=== PATIENT | male | born 1980 | race Caucasian/White ===

== ENCOUNTER 2019-06-18 09:15 | Observation (INO) | payer OTHER ==
[2019-06-18] MEDS ORDERED: PROPOFOL 20 ML (12:49)
[2019-06-18] MEDS ORDERED: SUCCINYLCHOLINE CHLORIDE 100 MG/5 ML SYG IV (12:49)
[2019-06-18] MEDS ORDERED: CEFAZOLIN 1 GM INJ ×2 (12:49)
[2019-06-18] MEDS ORDERED: LIDOCAINE 2% (SDV) 5 ML INJ (12:49)
[2019-06-18] MEDS ORDERED: ROCURONIUM 50 MG INJ ×2 (12:49→15:07)
[2019-06-18] MEDS ORDERED: NEOSTIGMINE 3 MG/3 ML SYRINGE ×2 (12:49→15:07)
[2019-06-18] MEDS ORDERED: MEPERIDINE 100 MG INJ (12:49)
[2019-06-18] MEDS ORDERED: GLYCOPYRROLATE 0.4 MG INJ ×3 (12:49→15:07)
[2019-06-18] MEDS: BUPIVACAINE 0.5%/EPI (SDV) 30 ML INJ (14:01)
[2019-06-18] MEDS: GELATIN SIZE 100 SPONGE (14:02)
[2019-06-18] MEDS: POLYMYXIN/BACITRACIN 1L IRRIG (14:02)
[2019-06-18] MEDS: THROMBIN 5000 UNIT (RECOTHROM) VIAL (14:02)
[2019-06-18] MEDS ORDERED: ACETAMINOPHEN 325 MG TAB PO (16:00)
[2019-06-18] MEDS ORDERED: PROCHLORPERAZINE 10 MG TAB PO (16:00)
[2019-06-18] MEDS ORDERED: AL HYDROX/MG HYDROX/SIMETH 30 ML CUP PO (16:00)
[2019-06-18] MEDS ORDERED: NACL 0.9% 3 ML SYG IV (16:00)
[2019-06-18] MEDS ORDERED: HYDROCODONE/APAP (5/325) TAB PO (16:00)
[2019-06-18] MEDS ORDERED: NALOXONE (0.4 MG/ML) INJ IV (16:00)
[2019-06-18] MEDS ORDERED: FENTAnyl 50 MCG/ML VIAL (16:08)
[2019-06-18] MEDS ORDERED: HYDROmorphONE 1 MG/5 ML IV SYRINGE IV ×3 (16:08→16:30)
[2019-06-18] MEDS: HYDROmorphONE 1 MG/5 ML IV SYRINGE IV (16:27)
[2019-06-18] MEDS ORDERED: FENTAnyl 50 MCG/ML VIAL IV ×2 (16:30)
[2019-06-18] MEDS ORDERED: LABETALOL HCL 20MG INJ IV (16:30)
[2019-06-18] MEDS ORDERED: EPHEDrine 25 MG/5 ML SYG IV (16:30)
[2019-06-18] MEDS ORDERED: MEPERIDINE 25 MG INJ IV (16:30)
[2019-06-18] MEDS ORDERED: METOCLOPRAMIDE 10 MG INJ IV (16:30)
[2019-06-18] MEDS ORDERED: hydrALAzine 20 MG INJ IV (16:30)
[2019-06-18] MEDS ORDERED: MIDAZOLAM 1 MG/ML 2 ML INJ IV (16:30)
[2019-06-18] MEDS ORDERED: DIPHENHYDRAMINE 50 MG INJ IV (16:30)
[2019-06-18] MEDS ORDERED: ONDANSETRON 4 MG INJ IV (16:30)
[2019-06-18] MEDS: FENTAnyl 50 MCG/ML VIAL IV (16:42)
[2019-06-18] MEDS: HYDROCODONE/APAP (5/325) TAB PO ×2 (18:11→22:57)
[2019-06-18] MEDS: SOD CHLORIDE 0.45% 1,000 ML IV (18:11)
[2019-06-18] MEDS: CEFAZOLIN 1 GM/50 ML (PMX) 50 ML IVPB ×2 (18:27→23:55)
[2019-06-18] MEDS: HYDROmorphONE 0.5 MG/0.5 ML SYG IV ×2 (20:12→23:55)
[2019-06-19] MEDS: SOD CHLORIDE 0.45% 1,000 ML IV ×2 (02:40→12:00)
[2019-06-19] MEDS: HYDROCODONE/APAP (5/325) TAB PO ×3 (02:58→12:08)
[2019-06-19 05:20] LABS: HEMATOCRIT 38.3 % (42.0-52.0); HEMOGLOBIN 12.8 g/dl (14.0-18.0)
[2019-06-19] MEDS: HYDROmorphONE 0.5 MG/0.5 ML SYG IV ×4 (05:44→15:46)
[2019-06-19] MEDS: CEFAZOLIN 1 GM/50 ML (PMX) 50 ML IVPB ×2 (05:44→11:57)
[2019-06-19 06:04] LABS: ANION GAP 9 (5-13); BLOOD UREA NITROGEN 9 mg/dl (7-20); CALCIUM 9.3 mg/dl (8.4-10.2); CARBON DIOXIDE 29 mmol/L (21-31); CHLORIDE 100 mmol/L (97-110); CREATININE 0.82 mg/dl (0.61-1.24); Estimated GFR > 60 mL/min (>60); GLUCOSE 114 mg/dl (70-220); POTASSIUM 3.6 mmol/L (3.5-5.1); SODIUM 138 mmol/L (135-144)
[2019-06-19] MEDS: DOCUSATE SODIUM 100 MG CAP PO (09:41)
[2019-06-19] MEDS: PREGABALIN 50 MG CAP PO ×2 (09:41→12:48)
[2019-06-19] MEDS: CEPASTAT LOZENGE MT (14:30)
== END 2019-06-19 16:10 | disposition home or self-care (01) ==
LOC: SDS 09:15 → MS1 17:27 → SDS 15:41 → MS1 15:41
DX: M51.16 Intervertebral disc disorders with radiculopathy, lumbar region (principal); G89.4 Chronic pain syndrome
CPT/HCPCS: 63030; 72110; 80048; 85014; 85018; 88304; 97116; 97162; 97530; 99217